=== PATIENT | female | born 1980 | race Hispanic/Latino ===

== ENCOUNTER 2017-12-13 06:40 | Inpatient (IN) | payer OTHER, SELFPAY ==
[2017-12-13 07:44] LABS: Amnisure Test No Membranes Rupture (No Rupture)
[2017-12-13 07:46] LABS: Amnisure Internal Control QC ACCEPTABLE (ACCEPTABLE)
[2017-12-13 08:22] VITALS: BMI 38.2
[2017-12-13] MEDS: Lactated Ringer's 1,000 ML IV SCH ×2 (08:25→18:56)
[2017-12-13] MEDS ORDERED: NS / Oxytocin 40 units/1000ml 1,000 ML IV PRN (09:06)
[2017-12-13] MEDS ORDERED: Promethazine HCl 25 MG/ML VIAL IM PRN ×2 (09:06→14:50)
[2017-12-13] MEDS ORDERED: Docusate 100 MG CAP PO PRN (09:06)
[2017-12-13] MEDS ORDERED: Ondansetron HCl/PF 4 MG/2 ML Vial IVP PRN ×2 (09:06→14:50)
[2017-12-13] MEDS ORDERED: Lidocaine 1% (PF) 30 ML VIAL SC PRN (09:06)
[2017-12-13] MEDS ORDERED: NS w/ Oxytocin 10 units 500 ML IV SCH (09:15)
--- NOTE | 2017-12-13 09:20 | PDOC.FPROB ---
FMR OB H&P: HPI - History of Present Illness Chief Complaint: LOF History of Present Illness: 37 yo F @ 39.1 wk by 25 wk sono. This morning at 0600 she was lying in bed and had a gush of clear fluid. She is feeling baby move and has not had painful contractions, has had irregular alok bedoya that are non-painful. Fluid has continued to leak since that time. Desires TOLAC after pLTCS in 2006 for multi- gestation. Desires epidural before stage 2 of labor. Primary Care Physician: Dr. Maida Hyde, [facility] FMR OB H&P: Current - Care : 7 Para: [id number] Gestational age: 39.1 Due date: 12/19/17 Dating Criteria: 25.0 wk sono Course/Complications: AMA, desires TOLAC after pLTCS in 2006 for multi-gestation, Late to care due to social (divorce) and transportation issues, obesity - OB Labs Blood type: O RH: positive Antibody Screen: negative HIV: negative RPR: negative HepBsAg: unknown Rubella: immune Quad screen: unknown (Due to pt late arrival to care. Pt has Advance maternal age.) Gonorrhea: negative Chlamydia: negative 1 hour gtt: 147 3 hour GTT: 82/140/134/73 A1c: 5.2 GBS: negative H&H: on 10/10/17: 34.6/12.2 Platelets: 265 - Anatomy Survey Anatomy survey: anterior placenta normal exam FMR OB H&P: History - Past Medical History PMH: pyelonephritis with first in 1998 glucose intolerance (1 hr = 147) obesity - OB History OB History: 1 spont at 8 wks 4 vaginal deliveries at 40 wks 1 pLTCS in 2006 for twin gestation at 40 weeks - TAIL DOGGER History TAIL DOGGER History: D&C x1 pLTCS in 2006 for multiple gestation - Surgical History Sx History: D&C x1 pLTCS in 2006 - Social History Social History: Denies smoking/alcohol/drug use - Family History Family History: Father with DM and HTN FMR OB H&P: Medications - Current Home Medications: Medication Instructions Recorded Confirmed Type No122/Iron/Folic Acid 1 each PO DAILY 12/13/17 12/13/17 History [ Multi Tablet] Allergies/Adverse Reactions: Allergies Allergy/AdvReac Type Severity Reaction Status Date / Time No Known Allergies Allergy Verified 12/13/17 08:06 FMR OB H&P: ROS - Review of Systems General: reports: other (sinus GOOD x 1 wk) Eyes: denies: eye pain, vision changes ENT: reports: nasal congestion, other (denies hearing changes). denies: ear pain, sore throat Cardiovascular: reports: edema. denies: chest pain, palpitation Respiratory: reports: congestion. denies: cough, shortness of breath Gastrointestinal: denies: abdominal pain, nausea, vomiting, diarrhea, constipation, bright red blood Genitourinary (Female): denies: dysuria, vaginal discharge, vaginal bleeding, contractions Musculoskeletal: reports: swelling (edema in ankles). denies: pain Neurologic: denies: numbness, weakness Psychological: denies: depression, anxiety FMR OB H&P: Vital Signs - Maternal Vital signs: BP 118/68 HR 73 R 20 T 98.5 - Heart Tones Baseline: 150 Variability: moderate Acceleration: present Deceleration: absent Category: category 1 [place] contractions every: irregular FMR OB H&P: Physical Exam - Physical Exam General: NAD, awake, alert and oriented HEENT: normocephalic and atraumatic, PERRLA, MMM, conjunctiva clear Neck: supple, no LAD Heart: RRR, normal S1/S2, no murmurs/rubs/gallops, pulses present, no edema General: CTAB, no respiratory distress, good air movement, no rales/rhonchi, no wheezing Abdomen: soft, gravid, non-tender Musculoskeletal: normal gait and station, pulses present Skin: no rash, capillary refill <2 seconds Psychiatric: intact recent and remote memory, good judgement and insight, normal mood and affect - Pelvic Exam Vulva: normal hair distribution, normal rugae FMR OB H&P: Results - Labs Lab results: Laboratory Results - last 24 hr 12/13/17 07:18 Amnio Swab Test No Membranes Rupture FMR OB H&P: A/P Discussion: Date/Time: 12/13/17913 37 yo F @ 39.1 wk by 25 wk sono presents with PROM #TOLAC -Patient desires to TOLAC -pLTCS in 2006 for twin gestation at term, proven pelvis from prior vaginal deliveries -Baby vertex by bedside sono, placenta anterior -FHTs reassuring -monitor labor with IUPC to monitor MVUs -Titrate pitocin to augment labor # Premature ROM, @ 0600 on 12/13 -Membranes are ruptured, clear fluid -Mom not feeling painful contractions -Plan is to place IUPC and titrate pitocin slowly #sIUP at term #Advance Maternal Age -37 yo F -QUAD screen not done due to late arrival to care #Obesity #Late to Care -UDS ordered -QUAD screen not done due to late arrival to care This H&P was discussed with Dr. Galvan and Dr. Camargo who agree with the above documentation and plan. Attending Addendum - Attending Addendum Date/Time: 12/13/17 2977 I personally evaluated the patient and discussed the management with Marcus Chavez & Cole. I agree with the History, Examination, Assessment and Plan documented above with any addition or exceptions noted below. patient is a reasonable candidate for TOLAC. Detailed risks vs benefits reviewed with patient. She has a proven pelvis but untested hysterotomy scar. Ruptured > 2 hours now with rare/inadequate ctx pattern. Recommend IUPC for closer monitoring, consider low-dose pitocin protocol. laborist, Dr. Michel, is aware of patient.
[2017-12-13 10:00] LABS: Hemoglobin 12.3 g/dL (12.0-16.0); Mean Corpuscular HGB CONC 34.4 g/dL (32.0-36.0); Mean Corpuscular Hemoglobin 30.2 pg (27.0-31.0); Mean Corpuscular Volume 87.6 fL (78.0-98.0); Mean Platelet Volume 8.1 fL (7.4-10.4); Platelet Count 208 thou/uL (130-400); RBC Distribution Width 13.6 % (11.5-14.5); Red Blood Cell (RBC) Count 4.08 mill/uL (4.20-5.40); White Blood Cell (WBC) Count 7.6 thou/uL (4.8-10.8)
[2017-12-13] MEDS ORDERED: Acetaminophen 500 MG TAB PO PRN (10:41)
[2017-12-13 10:46] LABS: HBSAg Index 0.16 S/CO (0-0.99); Hep B Surf Ag Non-Reactive S/CO (NonReactive)
--- NOTE | 2017-12-13 10:46 | PDOC.LDPN ---
Labor & Delivery Progress Note - Subjective Subjective: comfortable (feeling contractions q10 min, 4/10 pain) - Objective Vital signs reviewed and normal: yes General: resting Uterine fundus: non tender Dilation: 1 at inner os Effacement: 50% Station: -3 FHT: category 1 (135/mod/+accel/no decel) [place] contractions every: q10 min IUPC placed: yes - Assessment (1) SROM (spontaneous rupture of membranes) Code(s): [id number] - Current Visit: Yes Status: Acute (2) PROM (premature rupture of membranes) Code(s): O42.90 - AMIRA ROM, 7TH0 BETW RUPT & ONST LABR, UNSP WEEKS OF GEST Current Visit: Yes Status: Acute (3) Advanced maternal age (AMA) in Code(s): [id number] - Current Visit: Yes Status: Acute (4) Obesity (BMI 30-39.9) Code(s): E66.9 - OBESITY, UNSPECIFIED Current Visit: Yes Status: Acute (5) Late care affecting Code(s): O09.30 - SUPRVSN OF PREG W INSUFFICIENT ANTENAT CARE, UNSP TRIMESTER Current Visit: Yes Status: Acute Plan: pitocin for augmentation -: 37 yo at 39.3w by 21w sono here with PROM 1. PROM - ROM, clear fluid at 0600 with no cervical change since that time - Now emmanuel q10 minutes - IUPC placed and will start pitocin for induction/augmentation 2. TOLAC - H/o C/S for twin gestation following multiple successful - Discussed risks/benefits/alternatives - TOLAC consent signed - IUPC placed - Recommended epidural early - Will start pitocin as not candidate for cytotec and now with PROM 3. AMA - Late to care, no quad screen this 4. GBS negative 5. Late to care - Will add UDS
[2017-12-13] MEDS ORDERED: DISCONTINUE ALL PREVIOUS NARCOTICS FS SCH (13:15)
[2017-12-13] MEDS ORDERED: Bupivacaine 0.75% 13.4 ML, fentaNYL Citrate/PF 400 MCG in Sodium Chloride 0.9% 78.6 ML EPIDURAL SCH (13:15)
--- NOTE | 2017-12-13 14:04 | PDOC.LDPN ---
Labor & Delivery Progress Note - Subjective Subjective: painful contractions - Objective Vital signs reviewed and normal: yes Uterine fundus: non tender Dilation: per nursing /-3 FHT: late decelerations Resuscitative measures: amniofusion - Assessment (1) SROM (spontaneous rupture of membranes) Code(s): [id number] - Current Visit: Yes Status: Acute (2) PROM (premature rupture of membranes) Code(s): O42.90 - AMIRA ROM, 7TH0 BETW RUPT & ONST LABR, UNSP WEEKS OF GEST Current Visit: Yes Status: Acute (3) Advanced maternal age (AMA) in Code(s): [id number] - Current Visit: Yes Status: Acute (4) Obesity (BMI 30-39.9) Code(s): E66.9 - OBESITY, UNSPECIFIED Current Visit: Yes Status: Acute (5) Late care affecting Code(s): O09.30 - SUPRVSN OF PREG W INSUFFICIENT ANTENAT CARE, UNSP TRIMESTER Current Visit: Yes Status: Acute -: 37 yo at 39.2w by 21w sono here with PROM 1. PROM - ROM, clear fluid at 0600 with no cervical change since that time - Dann q8-10 minutes - Late decelerations noted once pitocin at 2 mu/min and pitocin d/c, amnioinfusion started, FHT improved - Discussed options with patient extensively regarding expectant management, rest + resumption of induction/augmentation vs. repeat C/S and she and partner choose to proceed with repeat section 2. TOLAC - H/o C/S for twin gestation following multiple successful - Discussed risks/benefits/alternatives - TOLAC consent signed and initiated however at this time decision by patient to proceed with C/S as above 3. AMA - Late to care, no quad screen this 4. GBS negative 5. Late to care - No known history of substance use - UDS ordered <Ngoc Galvan - Last Filed: 12/13/17 14:09> Event Note - Event Note Event Note: EFM had been relatively reassuring however borderline tachycardia interspersed with mild late decelerations developed. Cervix is still 1 cm relatively thick and high. IUPC was placed and amnioinfusion performed. Patient asked about the possibility of elective repeat C/S at this point. The reality is that she was never quite committed to TOLAC. She presented with PROM and did not tolerate low-dose pitocin augmentaion. Options are to restart pitocin for further CLYDE or to proceed with elective repeat C/S. Dr. Galvan and I discussed the pros and cons of each option in detail. We dicussed RBA for C/S, specifically risks including but not limited to bleeding, infection and inadvertent injury to nearby organs. Patient and her partner strongly desire for repeat C/S at this point. Will make appropriate arrangements. <Roly Camargo - Last Filed: 12/13/17 14:25>
[2017-12-13] MEDS ORDERED: Azithromycin 500 MG in Sodium Chloride 0.9% 250 ML 250 ML IVPB SCH (14:15)
[2017-12-13] MEDS ORDERED: CEFAZOLIN/Water 2 GM/20 ML SYRINGE SLOW IVP SCH (14:15)
[2017-12-13] MEDS ORDERED: Bicitra 30 ML UDCUP PO SCH (14:15)
[2017-12-13] MEDS ORDERED: Morphine PF 1 MG/ML SYR ONE (14:20)
[2017-12-13] MEDS ORDERED: Bupivacaine 0.75% W/DEXTROSE 8.25% 2 ML AMP ONE (14:21)
[2017-12-13] MEDS ORDERED: Ondansetron HCl/PF 4 MG/2 ML Vial ONE (14:21)
[2017-12-13] MEDS ORDERED: Oxytocin 10 UNITS/ML VIAL ONE (14:21)
[2017-12-13] MEDS ORDERED: ePHEDrine/0.9% NaCl/PF SYRINGE 50 mg/10 ml ONE (14:21)
[2017-12-13] MEDS ORDERED: Ketorolac Tromethamine 30 MG/ML VIAL ONE (14:21)
[2017-12-13] MEDS ORDERED: Lidocaine 1% PF 5 ML VIAL ONE (14:22)
[2017-12-13 14:27] LABS: Amphetamine Not Detected (NotDetected); Barbiturates Screen Not Detected (NotDetected); Benzodiazepine Screen Not Detected (NotDetected); Cocaine Metabolite Screen Not Detected (NotDetected); Medtox Control Line Valid? VALID (VALID); Medtox Reader # READER 1; Methadone Not Detected (NotDetected); Methamphetamine Not Detected (NotDetected); Opiate Screen Not Detected (NotDetected); Oxycodone Screen Not Detected (NotDetected); Phencyclidine (PCP) Not Detected (NotDetected); THC/Cannabinoid Screen Not Detected (NotDetected); Tricyclic Screen Not Detected (NotDetected)
[2017-12-13] MEDS ORDERED: Eucerin (Mineral Oil/Petrolatum,White) 30 gm Jar TOP PRN (14:50)
[2017-12-13] MEDS ORDERED: diphenhydrAMINE 50 MG/ML VIAL IVP PRN (14:50)
[2017-12-13] MEDS ORDERED: Ketorolac Tromethamine 30 MG/ML VIAL IVP PRN (14:50)
[2017-12-13] MEDS ORDERED: Naloxone HCl 0.4 mg/ml Vial IV PRN (14:50)
[2017-12-13] MEDS ORDERED: Naloxone HCl 0.4 mg/ml Vial IVP PRN ×2 (14:50)
[2017-12-13] MEDS ORDERED: Promethazine HCl 25 MG SUPP PR PRN (14:50)
[2017-12-13] MEDS ORDERED: Communication Order-Pharmacy FS SCH (15:00)
[2017-12-13 15:30] LABS: Actual Bicarbonate (HCO3a) 29.2 mEq/L (22-28)
[2017-12-13 15:31] LABS: Analyzer IN Cardio OR
[2017-12-13] MEDS: Docusate Calcium (SURFAK) 240 MG CAP PO SCH (22:36)
[2017-12-14] MEDS: Lactated Ringer's 1,000 ML IV SCH ×3 (01:46→16:13)
--- NOTE | 2017-12-14 04:38 | PDOC.PP ---
Post Progress Note Post Day #: 1 Subjective: Pt was seen and evaluated at 2130 37yo s/p C section 6hours, complains of nausea and vomiting. per nurse she has not been able to keep any water or ice chips down, including PO pain meds. Pt says pain is now up to 7-8/10 but has refused IV morphine. She wishes to tolerate the pain without medication. Pt is ambulating well, no flatus. ROS: no fevers or chills, no sob or cough, no cp or palpitations, nausea, vomiting, no hematemesis PO intake tolerated: no Flatus: no Ambulation: yes Vital Signs (12 hours) Temp Pulse Resp BP 12/14/17 00:20 97.7 F 62 20 117/67 12/13/17 22:11 20 12/13/17 20:15 97.9 F 56 L 18 98/54 L 12/13/17 19:15 97.6 F 63 18 109/59 L 12/13/17 18:10 97.7 F 65 18 111/56 L Weight Weight 97.976 kg - Physical Examination General: NAD Cardiovascular: no m/r/g, RRR Respiratory: clear to auscultation bilaterally, non-labored breathing Abdominal: + bowel sounds, no distention Deviation from normal: pressure dressing in place, no blood or discoloration visualized on bandage Neurological: no gross focal deficits Psychiatric: A&Ox3, normal affect Result Diagrams: 12/13/17 09:32 Additional Labs: Post Labs Blood Type O POSITIVE 12/13/17 09:32 Hep Bs Antigen Non-Reactive S/CO (NonReactive) 12/13/17 09:32 - Assessment/Plan 37yo s/p C section 6hours Nausea/Vomiting -Pt recieving IVF and prn nausea meds Post op pain -Pt currently unable to keep down prn pain meds but refuses IV meds -continue to monitor pain Post s/p -continue supportive care <Roly Hooker - Last Filed: 12/14/17 05:04> Weight Weight 97.976 kg Result Diagrams: 12/14/17 05:36 Additional Labs: Post Labs Blood Type O POSITIVE 12/13/17 09:32 Hep Bs Antigen Non-Reactive S/CO (NonReactive) 12/13/17 09:32 <Neeta Garcia - Last Filed: 12/17/17 16:45> Attending Addendum - Attending Addendum Date/Time: 12/15/17 0192 I personally evaluated the patient and discussed the management with Dr. Hooker I agree with the History, Examination, Assessment and Plan documented above with any addition or exceptions noted below. ABrayMD <Neeta Garcia - Last Filed: 12/17/17 16:45>
[2017-12-14 06:11] LABS: Hemoglobin 11.1 g/dL (12.0-16.0); Mean Corpuscular Hemoglobin 29.8 pg (27.0-31.0); Mean Corpuscular Volume 87.5 fL (78.0-98.0); Mean Platelet Volume 8.1 fL (7.4-10.4); Platelet Count 211 thou/uL (130-400); RBC Distribution Width 13.4 % (11.5-14.5); Red Blood Cell (RBC) Count 3.72 mill/uL (4.20-5.40); White Blood Cell (WBC) Count 9.5 thou/uL (4.8-10.8)
[2017-12-14] MEDS: Docusate Calcium (SURFAK) 240 MG CAP PO SCH ×2 (08:36→22:08)
[2017-12-14] MEDS: Enoxaparin Sodium 40 MG/0.4 ML SYRINGE SC SCH (08:37)
--- NOTE | 2017-12-14 08:44 | PDOC.OBPPN ---
FMR OB PN: Subj - Interval History Hospital Day: 2 Day: POD 1 37 yo F, s/p elective rLTCS after admission for term PROM and attempting TOLAC. Mom is fatigued today, awake with baby all night. Her incision is sore, pain is well controlled at 3/10. Patient refused norco last night, says she wants to get home as soon as she can. She was nauseated and vomiting a lot of fluid last night, says she is feeling better and had some breakfast this morning. Has not had gas yet, izquierdo removed this morning. Able to ambulate. She has had some itching over her abdomen but says it is improving. BF is going well, she would like to talk with today if available. She would like mark for control. She wants a circumcision for baby today. Baby's doctor will be Dr. Maida Hyde. Chief Complaint: Nausea, fatigue Interval History: Patient did well overnight. Feeling fatigued because baby was awake all nt FMR OB PN: Obj - Maternal Vital signs: BP: 117/67 HR: 62 RR: 20 T: 97.9 Pox: % on Wt: 98 kg - Urine output I&O: 12/13/17 12/14/17 12/15/17 06:59 06:59 06:59 Intake Total 1700 Output Total 1962 Balance -262 - Lochia Lochia: minimal lochia - Pain Management Pain scale: 3 (3/10) Intervention: other (IBP available, norco 5 mg PRN. Refused norco overnight.) FMR OB PN: Exam - Physical Exam General: NAD, awake, alert and oriented HEENT: normocephalic and atraumatic Heart: RRR, normal S1/S2, no murmurs/rubs/gallops, pulses present, other (edema 1+ in ankles bilat) General: CTAB, no respiratory distress, good air movement, no rales/rhonchi Abdomen: soft, gravid, fundus(cm) (above belly button, nontender), bowel sound present, other (Incision clean and intact.) Skin: no rash, capillary refill <2 seconds : incision healing well, no erythema, no drainage, appropriately tender - Pelvic Exam : sutures intact, normal lochia FMR OB PN: Data - Labs Lab results: Laboratory Results - last 24 hr 12/13/17 12/13/17 12/13/17 09:32 09:32 09:32 WBC 7.6 RBC 4.08 L Hgb 12.3 Hct 35.7 L MCV 87.6 MCH 30.2 MCHC 34.4 RDW 13.6 Plt Count 208 MPV 8.1 Bicarbonate Actual ABG pCO2 ABG Base Excess Cord ABG pH Urine Opiates Screen Ur Oxycodone Screen Urine Methadone Screen Ur Propoxyphene Screen Ur Barbiturates Screen Ur Tricyclics Screen Ur Phencyclidine Scrn Ur Amphetamines Screen U Methamphetamines Scrn U Benzodiazepines Scrn U Cocaine Metab Screen U Cannabinoids Screen Drug Screen Comment Hep Bs Antigen Non-Reactive Blood Type O POSITIVE Antibody Screen NEGATIVE 12/13/17 12/13/17 12/14/17 13:50 15:10 05:36 WBC 9.5 RBC 3.72 L Hgb 11.1 L Hct 32.5 L MCV 87.5 MCH 29.8 MCHC 34.0 RDW 13.4 Plt Count 211 MPV 8.1 Bicarbonate Actual 29.2 H ABG pCO2 62.9 H* ABG Base Excess 1.0 Cord ABG pH 7.29 Urine Opiates Screen Not Detected Ur Oxycodone Screen Not Detected Urine Methadone Screen Not Detected Ur Propoxyphene Screen Not Detected Ur Barbiturates Screen Not Detected Ur Tricyclics Screen Not Detected Ur Phencyclidine Scrn Not Detected Ur Amphetamines Screen Not Detected U Methamphetamines Scrn Not Detected U Benzodiazepines Scrn Not Detected U Cocaine Metab Screen Not Detected U Cannabinoids Screen Not Detected Drug Screen Comment Hep Bs Antigen Blood Type Antibody Screen FMR OB PN: A/P - Problem List (1) S/P repeat low transverse Current Visit: Yes Status: Acute Code(s): Z98.891 - HISTORY OF UTERINE SCAR FROM PREVIOUS SURGERY (2) Nausea after anesthesia Current Visit: Yes Status: Acute Code(s): T88.59XA - OTHER COMPLICATIONS OF ANESTHESIA, INITIAL ENCOUNTER; R11.0 - NAUSEA (3) Advanced maternal age (AMA) in Current Visit: Yes Status: Acute Code(s): [id number] - (4) Late care affecting Current Visit: Yes Status: Acute Code(s): O09.30 - SUPRVSN OF PREG W INSUFFICIENT ANTENAT CARE, UNSP TRIMESTER (5) Obesity (BMI 30-39.9) Current Visit: Yes Status: Chronic Code(s): E66.9 - OBESITY, UNSPECIFIED (6) PROM (premature rupture of membranes) Current Visit: Yes Status: Acute Code(s): O42.90 - AMIRA ROM, 7TH0 BETW RUPT & ONST LABR, UNSP WEEKS OF GEST Discussion: Date/Time: 12/14/17 0841 37 yo G7 now P6017 POD 1 from elective rLTCS on 12/13/2017 PPD #1, s/p rLTCS -BF well, will see today if they are available -Nausea and vomiting overnight: was able to eat small breakfast this morning. Will continue to monitor -Izquierdo removed this morning. Has not voided on her own yet, no flatus yet, not had a BM -Mylicon available -Able to ambulate -Desires circ for baby boy today -Baby's doctor will be Dr. Maida Hyde, same as Mom's doctor - control: had Mirena in the past, gave her migraines; right now Mom wants Mark Pain control -pain 3/10 -pt refused norco last night -IBP and norco available for PRN use Nausea/vomiting -zofran PRN Late to care -UDS Negative -Mom attentive to baby's needs. No concern at this time. This was discussed with Dr. Galvan and Dr. Camargo who agree with the above documentation and plan. Attending Addendum - Attending Addendum Date/Time: 12/14/17 0743 I personally evaluated the patient and discussed the management with Dr. [] I agree with the Examination, Assessment and Plan documented above.
[2017-12-14] MEDS ORDERED: Adacel (T-DAP) 0.5 ML VIAL IM ONE (09:00)
--- NOTE | 2017-12-14 10:28 | OP-2 ---
PRIMARY SURGEON: Dr Terry Chavez, Dr. Ngoc Galvan ASSISTING SURGEON: Dr. Tennille Chavez ATTENDING: Dr. Camargo was present throughout the procedure PROCEDURE PERFORMED: Repeat low transverse section. PREOPERATIVE DIAGNOSES: 1. Term intrauterine in labor. 2. Previous x1 for twins. 3. Trial of labor after section. 4. Premature rupture of membranes. 5. Advanced maternal age. 6. GBS negative. 7. Late to care. 8. Nonreassuring heart tones. POSTOPERATIVE DIAGNOSES: 1. Term intrauterine in labor. 2. Previous x1 for twins. 3. Trial of labor after section. 4. Premature rupture of membranes. 5. Advanced maternal age. 6. GBS negative. 7. Late to care. 8. Nonreassuring heart tones. SURGEON: Terry Chavez MD, Ngoc Galvan MD, ASSISTANTS: Tennille Chavez MD FACULTY: Roly Camargo MD ANESTHESIA: Spinal. INDICATIONS: The patient is a 37-year-old, G7, now P6 at 39-1/7 by 25-week sono. She was admitted for TOLAC. The patient was noted to have premature rupture of membranes. The patient developed nonreassuring heart tones. So, a shared decision was made to proceed with section for safety of mother and baby. PROCEDURE IN DETAIL: After risks, benefits, and alternatives were explained to the patient, she gave informed consent. Preoperative antibiotics included 2 grams of cefazolin IV. The patient was taken to the operating room and spinal anesthesia was initiated. She was placed in the supine position with a left tilt and prepped and draped in the usual sterile fashion. A Pfannenstiel incision was made with a scalpel and carried down to the level of the fascia, which was sharply nicked on both sides. The fascial cut was extended bilaterally with Mcfarland scissors. The inferior and superior edges of the cut fascial edges were elevated with Aleks clamps, and the other underlying rectus muscles were bluntly dissected free. Mcfarland scissors was used to complete dissection of the fascia from the rectus muscle superiorly and inferiorly. The recti were divided digitally and retracted manually. No adhesions were noted at the level of the omentum. The peritoneum was entered bluntly and retracted manually. Bladder blade was placed. After visualization, the bladder blade was removed and a bladder flap was created using Metzenbaum scissors. The bladder blade was then placed back into position after creation of the bladder flap. A low transverse score was made with a scalpel using 2 Allis clamps for elevation of the perimetrium. Suction was used for a blunt dissection. Clear fluid was noted. Hysterotomy was extended manually. was noted to be vertex. After primary surgeon placed hand on the crown of the infant and fundal pressure was applied, the baby was not able to be delivered. Home Economist surgeon inserted her hand into the hysterotomy and flexed the baby's head appropriately. Fundal pressure was applied and the baby was ultimately delivered without complication. Baby was vigorous and crying upon delivery, so delayed cord clamping of 1 minute was utilized. The baby was handed to the awaiting nurses. Cord blood was obtained as well as cord sample for cord gases. Placenta was extracted with fundal pressure, found to be intact with a 3 -vessel cord and was discarded. Uterus was externalized and the endometrium was curetted with a dry lap. The bladder blade was replaced. Ring forceps were used to approximate the edges of the endometrium. The hysterotomy was closed with a running 0 Monocryl suture, additional [id number] knot using 0 Monocryl were placed. Hemostasis was noted. The abdomen was inspected and suctioned after irrigation. No bleeding was noted at the edges of either hysterotomy or the posterior side of the uterus. The surrounding anatomy including ovary and tubes were noted to be normal. The uterus was then internalized and the hysterotomy was again noted to be hemostatic. The rectus was approximated using 3 simple interrupted 0 Vicryl sutures. The fascia was closed with a running nonlocking 0 Vicryl suture. After closure of the fascia, a small defect in the fascia was noted and this was closed with a second running suture of 0 Vicryl. Subcutaneous tissue was irrigated. Hemostasis was noted. Subcutaneous tissue was closed with simple interrupted 3-0 chromic suture. The skin was closed with 3-0 Vicryl running subcuticular suture and Dermabond was placed topically. Pressure dressing was placed. All counts were correct. The patient tolerated the procedure well and was taken to the recovery room in a stable condition. QUANTITATIVE BLOOD LOSS: 1055 mL. COMPLICATIONS: hemorrhage. SPECIMEN: Cord blood sent to lab. FINDINGS: Grossly normal male infant, 7 pounds 15 ounces, born with Apgars of 8 and 9. Grossly normal placenta with three-vessel cord that were discarded. DRAINS: Wade to gravity, draining clear urine. Faculty Addendum I was present for and assisted with the entire surgery. ZOILA
[2017-12-14] MEDS: HYDROcodone/Acetaminophen 5/325 mg Tablet PO PRN ×3 (13:10→22:08)
[2017-12-14] MEDS: Ibuprofen 800 MG TAB PO PRN ×2 (13:10→22:11)
[2017-12-14] MEDS: Simethicone Chewable 80 MG TAB PO PRN ×2 (13:10→22:11)
[2017-12-14] MEDS ORDERED: Bupivacaine HCl 0.5%/Epinephrine 1:200,000/PF 30 ml Vial ONE (15:12)
[2017-12-15] MEDS: Lactated Ringer's 1,000 ML IV SCH ×2 (01:23→08:55)
[2017-12-15] MEDS: HYDROcodone/Acetaminophen 5/325 mg Tablet PO PRN ×2 (04:57→11:40)
--- NOTE | 2017-12-15 05:47 | PDOC.PP ---
Post Progress Note Post Day #: 2 PO intake tolerated: yes Ambulation: yes Vital Signs (12 hours) Temp Pulse Resp BP Pulse Ox 12/15/17 04:40 97.7 F 72 20 98/53 L 96 12/15/17 04:35 97.7 F 72 20 12/14/17 20:10 97.8 F 75 22 H 111/57 L 97 Weight Weight 97.976 kg - Physical Examination General: NAD Abdominal: no distention, appropriately TTP Skin: CS incision dry & intact, no rash Neurological: no gross focal deficits Psychiatric: A&Ox3, normal affect Result Diagrams: 12/14/17 05:36 Additional Labs: Post Labs Blood Type O POSITIVE 12/13/17 09:32 Hep Bs Antigen Non-Reactive S/CO (NonReactive) 12/13/17 09:32 - Assessment/Plan 37 yo G7 now [id number] POD 1 from elective rLTCS on 12/13/2017 1. PPD #2, s/p rLTCS -Able to ambulate -Baby has appointment with Dr. Hyde for Sunday - control: had Mirena in the past, gave her migraines; right now Mom wants Lyn, recommended to discuss furthercontraception management with Dr. Hyde 2. Pain control -Pain improved today on Monroe, able to ambulate 3. Nausea/vomiting -zofran PRN Plan: Patient expressed desire to return to home, felt ready and that pain was more controlled with abdominal brace and Monroe. Will plan to send home with Rx for Monroe. Advised patient to follow up with Dr. Hyde in 1-2 weeks at [facility]. This was discussed with Dr. Rucker and Dr. Camargo who agree with the above documentation and plan. <Justa Collazo - Last Filed: 12/15/17 11:59> Vital Signs (12 hours) Temp Pulse Resp BP Pulse Ox 12/15/17 09:00 98.3 F 77 20 123/64 12/15/17 08:10 97.7 F 72 20 12/15/17 04:40 97.7 F 72 20 98/53 L 96 12/15/17 04:35 97.7 F 72 20 Weight Weight 97.976 kg Result Diagrams: 12/14/17 05:36 Additional Labs: Post Labs Blood Type O POSITIVE 12/13/17 09:32 Hep Bs Antigen Non-Reactive S/CO (NonReactive) 12/13/17 09:32 (1) S/P repeat low transverse Code(s): Z98.891 - HISTORY OF UTERINE SCAR FROM PREVIOUS SURGERY Status: Acute (2) Nausea after anesthesia Code(s): T88.59XA - OTHER COMPLICATIONS OF ANESTHESIA, INITIAL ENCOUNTER; R11.0 - NAUSEA Status: Acute (3) Advanced maternal age (AMA) in Code(s): QVF0409 - Status: Acute (4) Late care affecting Code(s): O09.30 - SUPRVSN OF PREG W INSUFFICIENT ANTENAT CARE, UNSP TRIMESTER Status: Acute (5) Obesity (BMI 30-39.9) Code(s): E66.9 - OBESITY, UNSPECIFIED Status: Chronic (6) PROM (premature rupture of membranes) Code(s): O42.90 - AMIRA ROM, 7TH0 BETW RUPT & ONST LABR, UNSP WEEKS OF GEST Status: Acute <Roly Camargo - Last Filed: 12/15/17 14:26> Attending Addendum - Attending Addendum Date/Time: 12/15/17 1986 I personally evaluated the patient and discussed the management with Dr Collazo I agree with the Examination, Assessment and Plan documented above with any addition or exceptions noted below. Will send Rx for Hydrocodone to her pharmacy. <Roly Camargo - Last Filed: 12/15/17 14:26>
[2017-12-15] MEDS: Ibuprofen 800 MG TAB PO PRN (05:49)
[2017-12-15] MEDS: Simethicone Chewable 80 MG TAB PO PRN (05:50)
[2017-12-15 09:05] VITALS: BP 123/64; TEMP 98.3
[2017-12-15] MEDS: Docusate Calcium (SURFAK) 240 MG CAP PO SCH (09:18)
[2017-12-15] MEDS: Enoxaparin Sodium 40 MG/0.4 ML SYRINGE SC SCH (09:18)
== END 2017-12-15 13:30 | disposition home or self-care (01) | DRG 765 ==
LOC: L&D/OP 06:40 → L&D 09:23 → 3SW 17:57
PROC: 10D00Z1 Extraction of Products of Conception, Low, Open Approach (ICD-10-PCS; principal; 2017-12-13)
PROC: 4A1HXCZ Monitoring of Products of Conception, Cardiac Rate, External Approach (ICD-10-PCS; 2017-12-13)
PROC: 4A1HXFZ Monitoring of Products of Conception, Cardiac Rhythm, External Approach (ICD-10-PCS; 2017-12-13)
DX: O34.211 Maternal care for low transverse scar from previous cesarean delivery (principal); O72.1 Other immediate postpartum hemorrhage; O76 Abnormality in fetal heart rate and rhythm complicating labor and delivery; O42.92 Full-term premature rupture of membranes, unspecified as to length of time between rupture and onset of labor; Z3A.39 39 weeks gestation of pregnancy; Z37.0 Single live birth; O99.89 Other specified diseases and conditions complicating pregnancy, childbirth and the puerperium; R11.2 Nausea with vomiting, unspecified; O99.214 Obesity complicating childbirth; E66.9 Obesity, unspecified; Z68.38 Body mass index [BMI] 38.0-38.9, adult
CPT/HCPCS: 36415; 51702; 76815; 80306; 82805; 84112; 85027; 86850; 86900; 86901; 87340; 99285; J0456; J0670; J1650; J1885; J2001; J2274; J2405; J2590; J3010; J3490; J7050